=== PATIENT | male | born 1950 | race Caucasian/White ===

== ENCOUNTER 2020-08-30 15:39 | Emergency (ER) | payer SELFPAY ==
[~2020-08-30] VITALS: Ht 170.2 cm; Wt 75.5 kg
[2020-08-30 15:56] VITALS: BP 127/67
--- NOTE | 2020-08-30 16:39 | PHYS DOC ---
Past History Past Surgical History: No Surgical History (ALEX OSORIO APRN) Alcohol Use: None (ALEX OSORIO APRN) General Adult EDM: Chief Complaint: SORE THROAT HPI: HPI: Patient is a 70-year-old male who presents with EMS. Patient states "I have no idea why my called the ambulance I told her that I felt fine, all of had is a cough". "I do not have any pain, I have not been running any fevers, and I am ready to go home". (ALEX OSORIO APRN) Review of Systems: Review of Systems: Constitutional: Denies fever or chills Eyes: Denies change in visual acuity HENT: Denies nasal congestion or sore throat Respiratory: Reports cough, denies shortness of breath. Cardiovascular: Denies chest pain or edema GI: Denies abdominal pain, nausea, vomiting, bloody stools or diarrhea : Denies dysuria Musculoskeletal: Denies back pain or joint pain Integument: Denies rash Neurologic: Denies headache, focal weakness or sensory changes Endocrine: Denies polyuria or polydipsia Lymphatic: Denies swollen glands Psychiatric: Denies depression or anxiety (ALEX OSORIO APRN) Allergies: Allergies: Allergies Coded Allergies Type Severity Reaction Last Updated Verified No Known Drug Allergies 08/30/20 No (ALEX OSORIO APRN) Physical Exam: PE: Constitutional: Well developed, well nourished, no acute distress, non-toxic appearance. [] HENT: Normocephalic, atraumatic, bilateral external ears normal, oropharynx moist, no oral exudates, nose normal. [] Eyes: PERRLA, EOMI, conjunctiva normal, no discharge. [] Neck: Normal range of motion, no tenderness, supple, no stridor. [] Cardiovascular:Heart rate regular rhythm, no murmur [] Lungs & Thorax: Bilateral breath sounds clear to auscultation [] Abdomen: Bowel sounds normal, soft, no tenderness, no masses, no pulsatile masses. [] Skin: Warm, dry, no erythema, no rash. [] Back: No tenderness, no CVA tenderness. [] Extremities: No tenderness, no cyanosis, no clubbing, ROM intact, no edema. [] Neurologic: Alert and oriented X 3, normal motor function, normal sensory function, no focal deficits noted. [] Psychologic: Affect normal, judgement normal, mood normal. [] (ALEX OSORIO APRN) Current Patient Data: Vital Signs: Vital Signs Date Time Temp Pulse Resp B/P (MAP) Pulse Ox O2 Delivery O2 Flow Rate FiO2 08/30/20 15:56 98.4 82 16 127/67 (87) 96 Room Air (ALEX OSORIO APRN) EKG: EKG: [] (ALEX OSORIO APRN) Radiology/Procedures: Radiology/Procedures: [] (ALEX OSORIO APRN) Heart Score: C/O Chest Pain: No Risk Factors: Risk Factors: DM, Current or recent (<one month) smoker, HTN, HLP, family history of CAD, obesity. Risk Scores: Score 0 - 3: 2.5% MACE over next 6 weeks - Discharge Home Score 4 - 6: 20.3% MACE over next 6 weeks - Admit for Clinical Observation Score 7 - 10: 72.7% MACE over next 6 weeks - Early Invasive Strategies (ALEX OSORIO APRN) Course & Med Decision Making: Course & Med Decision Making Pertinent Labs and Imaging studies reviewed. (See chart for details) [] 70-year-old male who presents with EMS for cough. Patient states his called the ambulance because he had a cough and has been worried about Covid. Patient states that he has no complaints. Patient denies any pain. Afebrile. Patient is refusing any testing or imaging to be done. Patient is hemodynamically stable. Alert and oriented x3. Explained to patient that he needs to follow-up with his PCP. Patient states that he understands and is questing to be discharged. (ALEX OSORIO APRN) Course & Med Decision Making I oversaw on the above date of service of this patient. This patient was evaluated, examined, treated, and dispositioned from the emergency department by the mid-level practitioner. Although I was working at the time and available for consultation, no assistance was requested and I did not see or immediately direct the care of this patient. I reviewed note and agree to findings, plan of care, and disposition as stated. Electronically signed, Christos Clark DO (CHRISTOS CLARK DO) Candace Disclaimer: Candace Disclaimer: This electronic medical record was generated, in whole or in part, using a voice recognition dictation system. (ALEX OSORIO APRN) Departure Departure: Impression: Primary Impression: Cough Disposition: 01 HOME / SELF CARE / HOMELESS Condition: STABLE Referrals: PCP,UNKNOWN (PCP) Patient Instructions: Cough, Adult Additional Instructions: EMERGENCY DEPARTMENT GENERAL DISCHARGE INSTRUCTIONS Thank you for coming to [facility] (ED) today and trusting us with you care. We trust that you had a positivie experience in our Emergency Department. If you wish to speak to the department management, you may call the director at [phone]. YOUR FOLLOW UP INSTRUCTIONS ARE FOLLOWS: 1. Do you have a private Doctor? If you do not have a private doctor, please ask for a resource list of physicians or clinics that may be able to assist you with follow up care. 2. The Emergency Physician has interpreted your x-rays. The X-Ray specialist will also review them. If there is a change in the findings, you will be notified in 48 hours when at all possible. 3. A lab test or culture has been done, your results will be reviewed and you will be notified if you need a change in treatment. ADDITIONAL INSTRUCTIONS AND INFORMATION: 1. Your care today has been supervised by a physician who is specially trained in emergency care. Many problems require more than one evaluation for a complete diagnosis and treatment. We recommend that you schedule your follow up appointment as recommended to ensure complete treatment of you illness or injury. If you are unable to obtain follow up care and continue to have a problem, or if your condition worsens, we recommend that you return to the ED. 2. We are not able to safely determine your condition over the phone nor are we able to give sound medical advice over the phone. For these safety reasons, if you call for medical advice we will ask you to come to the ED for further evaluation. 3. If you have any questions regarding these discharge instructions please call the ED at [phone]. SAFETY INFORMATION: In the interest of safety, wellness, and injury prevention; we encourage you to wear your sealbelt, if you smoke; quite smoking, and we encourage family to use a protective helmet for bicycling and other sporting events that present an increased risk for head injury. IF YOUR SYMPTOMS WORSEN OR NEW SYMPTOMS DEVELOP, OR YOU HAVE CONCERNS ABOUT YOUR CONDITION; OR IF YOUR CONDITION WORSENS WHILE YOU ARE WAITING FOR YOUR FOLLOW UP APPOINTMENT; EITHER CONTACT YOUR PRIMARY CARE DOCTOR, THE PHYSICIAN WHOSE NAME AND NUMBER YOU WERE GIVEN, OR RETURN TO THE ED IMMEDIATELY. ALEX OSORIO APRN Aug 30, 2020 16:39 CHRISTOS CLARK DO Sep 03, 2020 09:01
[2020-08-31] MEDS ORDERED: AZIT250T6 PO (21:04)
== END 2020-08-30 16:51 | disposition home or self-care (01) ==
LOC: ER 15:39
DX: R05 Cough (principal)
CPT/HCPCS: 99283-25

== ENCOUNTER 2020-08-31 17:47 | Emergency (ER) | payer SELFPAY ==
[~2020-08-31] VITALS: Ht 181.6 cm; Wt 75.2 kg
--- NOTE | 2020-08-31 18:02 | PHYS DOC ---
Past History Past Surgical History: No Surgical History (MICHA SNYDRE MD) Alcohol Use: None (MICHA SNYDER MD) General Adult HPI: HPI: Patient is a 70 year old male who presents with above hx and complaints (MICHA SNYDER MD) HPI: 70-year-old male who presents to the emergency department with a chief complaint of my is making me come here. Patient states his thinks that he has not been eating, has been short of breath, and might have the coronavirus so she made him come to the emergency department for an evaluation. Patient states he does feel a little short of breath intermittently, however denies the other physical complaints that his has made. Patient denies chest pains, chest congestion or nasal congestion, abdominal pain, nausea, vomiting, diarrhea, increased thirst or increased urination. Patient states he does not smoke cigarettes, drinks occasionally, denies illicit drug use. Patient states he does not have a primary doctor, does not take any prescription medications or gfru-llb-hixtzhz medications, denies allergies to medications. Patient denies any recent travel, states no one else in his home has been ill. (THAD LA APRN) Review of Systems: Review of Systems: Constitutional: Denies fever or chills Eyes: Denies change in visual acuity HENT: Denies nasal congestion or sore throat Respiratory: Denies cough or shortness of breath Cardiovascular: Denies chest pain or edema GI: Denies abdominal pain, nausea, vomiting, bloody stools or diarrhea : Denies dysuria Musculoskeletal: Denies back pain or joint pain Integument: Denies rash Neurologic: Denies headache, focal weakness or sensory changes Endocrine: Denies polyuria or polydipsia Lymphatic: Denies swollen glands Psychiatric: Denies depression or anxiety (MICHA SNYDER MD) Review of Systems: 14 body systems of review of systems have been reviewed. See HPI for pertinent positives and negative responses, otherwise all other systems are negative, nonpertinent or noncontributory. (THAD LA APRN) Current Medications: Current Meds: Patient denies taking prescription medications or eigb-uak-[id number] medications. (THAD LA APRN) Allergies: Allergies: Allergies Coded Allergies Type Severity Reaction Last Updated Verified No Known Drug Allergies 08/30/20 No (MICHA SNYDER MD) Allergies: Patient denies allergies to medications. (THAD LA APRN) Physical Exam: PE: Constitutional: Well developed, well nourished, no acute distress, non-toxic appearance. [] HENT: Normocephalic, atraumatic, bilateral external ears normal, oropharynx moist, no oral exudates, nose normal. [] Eyes: PERRLA, EOMI, conjunctiva normal, no discharge. [] Neck: Normal range of motion, no tenderness, supple, no stridor. [] Cardiovascular:Heart rate regular rhythm, no murmur [] Lungs & Thorax: Bilateral breath sounds clear to auscultation [] Abdomen: Bowel sounds normal, soft, no tenderness, no masses, no pulsatile masses. [] Skin: Warm, dry, no erythema, no rash. [] Back: No tenderness, no CVA tenderness. [] Extremities: No tenderness, no cyanosis, no clubbing, ROM intact, no edema. [] Neurologic: Alert and oriented X 3, normal motor function, normal sensory function, no focal deficits noted. [] Psychologic: Affect normal, judgement normal, mood normal. [] (MICHA SNYDER MD) PE: Constitutional: Well developed, well nourished, no acute distress, non-toxic appearance. 70-year-old male in no apparent distress. HENT: Normocephalic, atraumatic. Eyes: Conjunctiva normal, no discharge. Neck: Normal range of motion, no stridor. Cardiovascular:Heart rate regular rhythm, no murmur, heart sounds S1-S2 to auscultation. Lungs & Thorax: Bilateral breath sounds clear to auscultation no adventitious lung sounds appreciated. Abdomen: Bowel sounds normal, soft, no tenderness, no masses, no pulsatile masses. No discoloration or areas of ecchymosis of the abdomen. Skin: Warm, dry, no erythema, no rash. Back: No tenderness, no CVA tenderness. Extremities: No tenderness, no cyanosis, no clubbing, ROM intact, no edema. Neurologic: Alert and oriented X 3, normal motor function, normal sensory function, no focal deficits noted. Psychologic: Affect normal, judgement normal, mood normal. (THAD LA APRN) Current Patient Data: Vital Signs: Laboratory Tests Test 08/31/20 18:25 White Blood Count 3.2 x10^3/uL Red Blood Count 4.45 x10^6/uL Hemoglobin 16.0 g/dL Hematocrit 46.2 % Mean Corpuscular Volume 104 fL Mean Corpuscular Hemoglobin 36 pg Mean Corpuscular Hemoglobin Concent 35 g/dL Red Cell Distribution Width 14.3 % Platelet Count 167 x10^3/uL Neutrophils (%) (Auto) 38 % Lymphocytes (%) (Auto) 42 % Monocytes (%) (Auto) 19 % Eosinophils (%) (Auto) 1 % Basophils (%) (Auto) 0 % Neutrophils # (Auto) 1.2 x10^3uL Lymphocytes # (Auto) 1.3 x10^3/uL Monocytes # (Auto) 0.6 x10^3/uL Eosinophils # (Auto) 0.0 x10^3/uL Basophils # (Auto) 0.0 x10^3/uL (THAD LA APRN) EKG: EKG: [] (MICHA SNYDER MD) EKG: EKG performed at 1831 by house respiratory therapy staff shows a normal sinus rhythm with a leftward axis, otherwise no other ectopy appreciated, heart rate 70 bpm, WV interval 0.138, QTc interval 0.439, no acute STEMI, no ACS, no acute ischemia appreciated, EKG interpreted by ED attending physician Dr. Snyder. (THAD LA APRN) Radiology/Procedures: Radiology/Procedures: [] (MICHA SNYDER MD) Radiology/Procedures: PATIENT: IRLANDA FARMER ACCOUNT: [id number] : 1950 LOCATION: ER AGE: 70 SEX: M EXAM STATUS: REG ER ORD. PHYSICIAN: THAD LA APRN REASON: short of breath, elevated d-dimer - 100mls omni 350 PROCEDURE: CT ANGIOGRAPHY CHEST CT arteriogram of the chest. HISTORY: Short of breath, elevated d-dimer CT arteriogram of the chest was done using 100 mL Omnipaque 350 contrast. Coronal MIP images were reconstructed. Thyroid is homogeneous. Thoracic aorta is tortuous. There is no aortic dissection. Upper poles the kidneys are unremarkable. Adrenal glands are normal. There are gallstones in the gallbladder. There are small cysts in the liver. This study is negative for pulmonary embolus. There is atelectasis in the lung bases. There is a gr oundglass nodule or a small groundglass infiltrate on image #[address] series 4 in the left lung measuring 1.2 cm. There is also small focal infiltrate in the lateral left lower lobe on images 64 through 72. Small foci of pneumonia are possible. Follow-up study in 3-6 months would be recommended to exclude an underlying nodule. There is a small hiatus hernia. IMPRESSION: 1. Posterior dependent atelectasis. 2. Small foci of groundglass infiltrate or groundglass nodules in the left upper lobe and left lower lobe, focal pneumonitis or pneumonia is possible. Follow-up study recommended. 3. Negative for pulmonary embolus. 4. Cholelithiasis. PQRS Compliance Statement: One or more of the following individualized dose reduction techniques were utilized for this examination: 1. Automated exposure control 2. Adjustment of the mA and/or kV according to patient size 3. Use of iterative reconstruction technique Electronically signed by: Judah Smart MD (08/31/2020 8:33 PM) [facility] DICTATED AND SIGNED BY: JUDAH SMART MD DATE: 08/31/202025 CC: THAD LA APRN; MICHA SNYDER MD; PCP,NO ~MTH0 0 (THAD LA APRN) Heart Score: Risk Factors: Risk Factors: DM, Current or recent (<one month) smoker, HTN, HLP, family history of CAD, obesity. Risk Scores: Score 0 - 3: 2.5% MACE over next 6 weeks - Discharge Home Score 4 - 6: 20.3% MACE over next 6 weeks - Admit for Clinical Observation Score 7 - 10: 72.7% MACE over next 6 weeks - Early Invasive Strategies (MICHA SNYDER MD) C/O Chest Pain: No (THAD LA APRN) Course & Med Decision Making: Course & Med Decision Making Pertinent Labs and Imaging studies reviewed. (See chart for details) [] (MICHA SNYDER MD) Course & Med Decision Making 70-year-old male, vital signs reviewed, presents emergency department with chief complaint that his made him come as she is afraid he might have the COVID- 19 virus. Patient did reveal that he has some shortness of breath, however did deny chest pain. Patient's vital signs were nonconcerning all within normal limits, cough once during HPI interview with the sound of bronchial type infection. Related to patient's 's concerns, stating that he does not reveal all of his illnesses and complaints, will perform cardiorespiratory work- up. Patient is EKG was nonconcerning, troponin negative, lab work unremarkable except for elevated D-dimer, will order CT angio chest to rule out pulmonary emboli however patient does have elevated monocytes and low white blood cell count, this is suspicious for viral infectious process, COVID-19 virus testing was obtained and sent to lab for routine analysis. Awaiting CT angio chest results at this time. Patient does remain nontoxic in appearance, he is in no obvious respiratory distress, and vital signs have remained normal throughout his ER stay. CT angio chest negative for pulmonary emboli however does show groundglass opacities of the left upper and lower lobes of the lung. Suggestive of pneumonia or pneumonitis. The patient is a PUI. Will treat as outpatient related to patient in no respiratory distress, remains nontoxic in appearance, is in no obvious distress, the patient's curb 65 score is 1 which supports rec ommendation of treating as outpatient. Will start patient on azithromycin p.o. regimen. We will discussed with patient strict follow-up with PCP this week. Discussed CT findings with patient, patient gave verbal understanding of discharge home instructions, PUI instructions, antibiotic directions, strict follow-up with PCP this week, strict return to ER precautions and concerns, patient states that he feels fine and is ready to go home, patient was discharged home without incident. Covid 19 PPE donned and worn during all interactions with patient. (THAD LA APRN) Dragon Disclaimer: Dragon Disclaimer: This electronic medical record was generated, in whole or in part, using a voice recognition dictation system. (MICHA SNYDER MD) Departure Departure: Impression: Primary Impression: Atypical pneumonia Additional Impressions: Person under investigation for COVID-19 CAP (community acquired pneumonia) Qualified Codes: J18.9 - Pneumonia, unspecified organism Disposition: HOME / SELF CARE / HOMELESS Condition: GOOD Referrals: PCP,NO (PCP) Patient Instructions: Pneumomediastinum Additional Instructions: You were seen today in the emergency department for complaints of shortness of breath. A full cardiorespiratory work-up was performed in the ED today. Your EKG and cardiac enzyme serum blood work did not show any concerning findings, your chest x-ray within normal limits, as we discussed you did have an elevated D-dimer which can sometimes indicate your body is suffering from a blood clot so a CT of your chest was ordered to rule out any blood clots of your lungs. As we discussed, the CT did not show any blood clots in your lungs, however did show signs of pneumonia of the upper and lower lung. A COVID-19 virus test was drawn today and should be available within the next 48 hours. I have attached COVID-19 virus information to this document, please review. Even though an extensive cardiorespiratory work-up was performed in the ED today this does not fully rule out any underlying cardiac or respiratory abnormalities. Therefore, as we discussed, please follow-up with a primary care physician for further evaluation and consideration of specialist follow-up. You had indicated you do not have a primary care physician however you may consider using the [facility] [place] at [address] [place] [address] [place] [address]. Their telephone number is [phone]. Please call Wednesday for an appointment this week. I am starting you on a antibiotic called azithromycin. I have sent your prescription to the pharmacy of your choice. Please start tomorrow and take as directed. Please return to the emergency department immediately for worsening symptoms, increased short of breath, chest pains, dizziness or passing out spells, or other concerns. It was a pleasure taking care of you in the ED today and I thank you for allowing me to participate in your emergency care. You have been tested for or diagnosed with COVID-19. It is an infection caused by a new type of coronavirus. COVID-19 will cause cold-like or mild flu symptoms in most. It can cause more severe symptoms like problems breathing in some. There is no treatment for COVID-19. The body will clear the infection over time. Self-care will help to ease discomfort. Steps to Take: Self-Care Rest as needed. Healthy habits may help you feel better. Steps include: Choose healthy foods including fruits and vegetables. Drink water throughout the day. Get plenty of sleep each night. If you smoke, try to quit. It may ease breathing. Avoid alcohol. Keep Others Healthy The virus can spread to others. Droplets are released every time you sneeze or cough. The droplets can get into the mouth, nose, or eyes of people near you and lead to infection. To lower the chances of spreading COVID-19 to others: Stay at home until your doctor has said it is safe to leave. If you tested positive this will mean staying isolated until both of the following are true: At least 7 days have passed since the start of illness. You are free of fever for at least 72 hours without the use of medicine. During this time: - Avoid public areas, events, or transportation. Do not return to work or school until your doctor has said it is safe to do so. - Call ahead if you need to go to a medical center. Let them know you may have COVID-19. It will help them guide you where to go. They may also ask you to wear a facemask when you come to the office. - If you call for emergency medical services, let them know you may have COVID- 19. While at home: - Try to avoid close contact with others. Stay about 6 feet away. - If possible, spend most of your time in a separate room from others. - Use a face mask if you will be in close contact with others such as sharing a room or vehicle. - Have someone wipe down common surfaces in the home. Use household mine superintendent every day on areas like doorknobs, counters, or sinks. - Cough or sneeze into a tissue. Throw the tissue away right after use. If a tissue is not available, cough or sneeze into your elbow. - Wash your hands often. Wash them after sneezing or coughing. Use soap and water and wash for at least 20 seconds. Alcohol based hand press cleaner can be used if soap and water is not available. - Do not prepare food for others. Avoid sharing personal items like forks, spoons, or toothbrushes. - Avoid close contact with pets while you are sick. There is no evidence of the virus passing to pets. This is a safety step until more is known about this virus. Isolation can be frustrating. Social interaction can help. Keep in touch with friends and family through phone and tech options. You can still interact with others in your home, just keep a safe distance of about 6 feet. Follow-up: Your doctors office will check in with you to see if there are any changes in your health. You may be asked to keep track of symptoms to share with them. They will also let you know when you are clear to be in public again. Problems to Look Out For: Contact your doctor if your recovery is not going as you expect. Get emergency care if you have problems such as: - Trouble breathing - Nonstop chest pain or pressure - Changes in awareness, confusion, or problems waking - Lips or face have bluish color - Worsening of symptoms If you think you have an emergency, call for emergency medical services right away. As taken from [facility] EMERGENCY DEPARTMENT GENERAL DISCHARGE INSTRUCTIONS Thank you for coming to [facility] (ED) today and trusting us with you care. We trust that you had a positivie experience in our Emergency Department. If you wish to speak to the department management, you may call the director at [phone]. YOUR FOLLOW UP INSTRUCTIONS ARE FOLLOWS: 1. Do you have a private Doctor? If you do not have a private doctor, please ask for a resource list of physicians or clinics that may be able to assist you with follow up care. 2. The Emergency Physician has interpreted your x-rays. The X-Ray specialist will also review them. If there is a change in the findings, you will be notified in 48 hours when at all possible. 3. A lab test or culture has been done, your results will be reviewed and you will be notified if you need a change in treatment. ADDITIONAL INSTRUCTIONS AND INFORMATION: 1. Your care today has been supervised by a physician who is specially trained in emergency care. Many problems require more than one evaluation for a complete diagnosis and treatment. We recommend that you schedule your follow up appointment as recommended to ensure complete treatment of you illness or injury. If you are unable to obtain follow up care and continue to have a problem, or if your condition worsens, we recommend that you return to the ED. 2. We are not able to safely determine your condition over the phone nor are we able to give sound medical advice over the phone. For these safety reasons, if you call for medical advice we will ask you to come to the ED for further evaluation. 3. If you have any questions regarding these discharge instructions please call the ED at [phone]. SAFETY INFORMATION: In the interest of safety, wellness, and injury prevention; we encourage you to wear your sealbelt, if you smoke; quite smoking, and we encourage family to use a protective helmet for bicycling and other sporting events that present an increased risk for head injury. IF YOUR SYMPTOMS WORSEN OR NEW SYMPTOMS DEVELOP, OR YOU HAVE CONCERNS ABOUT YOUR CONDITION; OR IF YOUR CONDITION WORSENS WHILE YOU ARE WAITING FOR YOUR FOLLOW UP APPOINTMENT; EITHER CONTACT YOUR PRIMARY CARE DOCTOR, THE PHYSICIAN WHOSE NAME AND NUMBER YOU WERE GIVEN, OR RETURN TO THE ED IMMEDIATELY. Scripts Azithromycin (AZITHROMYCIN TABLET) 250 Mg Tablet 1 PKG PO UD for atypical pneumonia for 5 Days, #6 TAB 0 Refills 2 the first day followed by 1 for days 2-5 Prov: THAD LA APRN 08/31/20 Attending Signature Attending Signature I have participated in the care of this patient and I have reviewed and agree with all pertinent clinical information above including history, exam, and recommendations. (MICHA SNYDER MD) MICHA SNYDER MD Aug 31, 2020 18:02 THAD LA APRN Aug 31, 2020 18:57
[2020-08-31 18:50] LABS: BASO % 0 % (0-3); EOS % 1 % (0-3); HEMATOCRIT 46.2 % (39.0-53.0); LYMPH # 1.3 x10^3/uL (1.0-4.8); LYMPH % 42 % (24-48); MEAN CORPUSCULAR HEMOGLOBIN 36 pg (25-35); MEAN CORPUSCULAR HGB CONC 35 g/dL (31-37); MEAN CORPUSCULAR VOLUME 104 fL (79-100); MONO # 0.6 x10^3/uL (0.0-1.1); MONO % 19 % (0-9); NEUT # 1.2 x10^3uL (1.8-7.7); NEUT % 38 % (31-73); PLATELET COUNT 167 x10^3/uL (140-400); RED BLOOD COUNT 4.45 x10^6/uL (4.30-5.70); RED CELL DISTRIBUTION WIDTH 14.3 % (11.5-14.5); WHITE BLOOD COUNT 3.2 x10^3/uL (4.0-11.0)
[2020-08-31 18:54] LABS: CALCIUM 8.6 mg/dL (8.5-10.1); CREATININE 1.1 mg/dL (0.7-1.3); GFR 66.6; POTASSIUM 3.6 mmol/L (3.5-5.1)
[2020-08-31 19:00] LABS: ALBUMIN 3.7 g/dL (3.4-5.0); ALBUMIN/GLOBULIN RATIO 1.1 (1.0-1.7); TOTAL BILIRUBIN 0.4 mg/dL (0.2-1.0); TOTAL PROTEIN 7.1 g/dL (6.4-8.2)
[2020-08-31] MEDS: IOHEXOL 350 MG/ML 100 ML VIAL. IV ONE (19:42)
[2020-08-31] MEDS ORDERED: CONTRAST GIVEN. MC PRN (20:00)
--- NOTE | 2020-08-31 20:36 | RAD ---
CT arteriogram of the chest. HISTORY: Short of breath, elevated d-dimer CT arteriogram of the chest was done using 100 mL Omnipaque 350 contrast. Coronal MIP images were rec onstructed. Thyroid is homogeneous. Thoracic aorta is tortuous. There is no aortic dissection. Upper poles the kidneys are unremarkable. Adrenal glands are normal. There are gallstones in the gallbladde r. There are small cysts in the liver. This study is negative for pulmonary embolus. There is atelect asis in the lung bases. There is a groundglass nodule or a small groundglass infiltrate on image #[address] series 4 in the left lung measuring 1.2 cm. There is also small focal infiltrate in the lateral left lower lobe on images 64 through 72. Small foci of pneumonia are possible. Follow-up study in 3- 6 months would be recommended to exclude an underlying nodule. There is a small hiatus hernia. IMPRESSION: 1. Posterior dependent atelectasis. 2. Small foci of groundglass infiltrate or groundglass nodules in the left upper lobe and left lower lobe, focal pneumonitis or pneumonia is possible. Follow-up study recommended. 3. Negative for pulmonary embolus. 4. Cholelithiasis. PQRS Compliance Statement: One or more of the following individualized dose reduction techniques were utilized for this examinat ion: 1. Automated exposure control 2. Adjustment of the mA and/or kV according to patient size 3. Use of iterative reconstruction technique Electronically signed by: Judah Smart MD (08/31/2020 8:33 PM) [facility]
[2020-08-31 21:01] VITALS: BP 115/79
[2020-08-31] MEDS ORDERED: AZIT250T6 PO (21:04)
[2020-08-31] MEDS: AZITHROMYCIN 250 MG TABLET. PO ONE (21:11)
--- NOTE | 2020-08-31 21:38 | RAD ---
EXAMINATION: XR CHEST 2V CLINICAL HISTORY: Shortness of breath EXAM DATE/TIME: 08/31/2020 6:14 PM COMPARISON: None FINDINGS: Lines, Tubes, and Devices: None. Cardiomediastinal Silhouette: Normal heart size. Aortic atherosclerotic calcification. Lungs and Pleura: Subtle patchy opacities in the right lower lung zone and left upper lung zone. Old calcified granulomatous disease. No pleural effusion. Pulmonary vasculature unremarkable. Bones and Soft Tissues: Degenerative changes of the thoracic spine. IMPRESSION: Several patchy opacities in the right lower lung zone and left upper lung zone, nonspecific. Electronically signed by: Hardeep Chamorro DO (08/31/2020 9:35 PM) [facility]
--- NOTE | 2020-09-01 10:21 | EKG ---
[address] [address] Test Date: 2020-08-31 Test Time: 18:31:58 Pat Name: IRLANDA FARMER Department: Room: Gender: M Transmission Worker: : 1950 Requested By: THAD LA Order Number: [id number] Reading MD: Measurements Intervals [place] Rate: P: SD: QRS: QRSD: T: QT: QTc: Interpretive Statements
== END 2020-08-31 21:16 | disposition home or self-care (01) ==
LOC: ER 17:47
DX: J18.9 Pneumonia, unspecified organism (principal); U07.1 COVID-19
CPT/HCPCS: 36415; 71046; 71275; 80053; 83605; 84484; 85025; 85379; 93005; 99285; C9803; Q9967; U0003

== ENCOUNTER 2020-09-09 16:23 | Emergency (ER) | payer SELFPAY ==
[~2020-09-09] VITALS: Ht 182.9 cm; Wt 79.5 kg
[~2020-09-09 16:23] MED LIST: AZIT250T6 PO
--- NOTE | 2020-09-09 16:43 | PHYS DOC ---
Past History Past Surgical History: No Surgical History Additional Past Surgical Histo: hernia Alcohol Use: Occasionally General Adult EDM: Chief Complaint: WEAKNESS/GENERALIZED HPI: HPI: Patient is a 70-year-old male who presents to the ER today for generalized weakness, lethargy, bilateral rib pain with deep inspiration that started 4 days ago. Patient is Covid positive. Patient states symptoms started 9 days ago. Patient rates his rib pain 4 out of 10, it is worse with deep inspiration, no radiation, no treatment prior to arrival. Patient denies shortness of breath, fevers, chest pain, loss of taste or smell, cough, sore throat. Patient does not have any medical history. Vital signs stable Review of Systems: Review of Systems: 14 body systems of the review of systems have been reviewed. See HPI for pertinent positive and negative responses, otherwise all other systems are negative, nonpertinent or noncontributory Allergies: Allergies: Allergies Coded Allergies Type Severity Reaction Last Updated Verified No Known Drug Allergies 09/09/20 No Physical Exam: PE: Constitutional: Well developed, well nourished, no acute distress, non-toxic appearance. [] HENT: Normocephalic, atraumatic Eyes: PERRL, conjunctiva normal, no discharge. [] Neck: Normal range of motion, no stridor Cardiovascular:Heart rate regular rhythm, no murmur [] Lungs & Thorax: Bilateral breath sounds clear to auscultation [] Abdomen: Bowel sounds normal, soft, no tenderness, no masses, no pulsatile masses. [] Skin: Warm, dry, no erythema, no rash. [] Back: No tenderness, normal range of motion Extremities: No tenderness, no cyanosis, no clubbing, ROM intact, no edema. [] Neurologic: Alert and oriented X 3, normal motor function, normal sensory function, no focal deficits noted. [] Psychologic: Affect normal, judgement normal, mood normal. [] Current Patient Data: Labs: Laboratory Tests Test 09/09/20 17:03 White Blood Count 9.1 x10^3/uL Red Blood Count 3.92 x10^6/uL Hemoglobin 13.7 g/dL Hematocrit 40.4 % Mean Corpuscular Volume 103 fL Mean Corpuscular Hemoglobin 35 pg Mean Corpuscular Hemoglobin Concent 34 g/dL Red Cell Distribution Width 14.3 % Platelet Count 202 x10^3/uL Neutrophils (%) (Auto) 72 % Lymphocytes (%) (Auto) 14 % Monocytes (%) (Auto) 13 % Eosinophils (%) (Auto) 1 % Basophils (%) (Auto) 1 % Neutrophils # (Auto) 6.5 x10^3uL Lymphocytes # (Auto) 1.3 x10^3/uL Monocytes # (Auto) 1.1 x10^3/uL Eosinophils # (Auto) 0.1 x10^3/uL Basophils # (Auto) 0.0 x10^3/uL Sodium Level 143 mmol/L Potassium Level 3.7 mmol/L Chloride Level 104 mmol/L Carbon Dioxide Level 30 mmol/L Anion Gap 9 Blood Urea Nitrogen 10 mg/dL Creatinine 1.0 mg/dL Estimated GFR (Cockcroft-Gault) 74.3 BUN/Creatinine Ratio 10 Glucose Level 93 mg/dL Calcium Level 8.5 mg/dL Total Bilirubin 0.6 mg/dL Aspartate Amino Transf (AST/SGOT) 16 U/L Alanine Aminotransferase (ALT/SGPT) 15 U/L Alkaline Phosphatase 71 U/L Troponin I Quantitative < 0.017 ng/mL Total Protein 6.2 g/dL Albumin 3.1 g/dL Albumin/Globulin Ratio 1.0 Vital Signs: Vital Signs Date Time Temp Pulse Resp B/P (MAP) Pulse Ox O2 Delivery O2 Flow Rate FiO2 09/09/20 16:36 98.7 68 18 118/70 93 EKG: EKG: EKG was performed by ER staff at 1648 shows sinus rhythm read by Dr. Null [] Radiology/Procedures: Radiology/Procedures: PROCEDURE: PORTABLE CHEST 1V Single AP view of the chest. Comparison: 08/31/2020. Indication: Bilateral rib pain with Covid Findings: The aorta is calcified and tortuous. The heart is not enlarged. There is no pneumothorax or effusion. No air space or interstitial disease. Impression: 1. No acute cardiopulmonary process. Electronically signed by: Jamin Pruitt MD (09/09/2020 5:34 PM) [facility] DICTATED AND SIGNED BY: JAMIN PRUITT MD DATE: 09/09/20 1733 CC: EMERGENCY,DEPARTMENT; JORJE IRAHETA [employer] SUR[employer]Y WORKER; PCP,NO ~MTH0 0 Heart Score: C/O Chest Pain: No Risk Factors: Risk Factors: DM, Current or recent (<one month) smoker, HTN, HLP, family history of CAD, obesity. Risk Scores: Score 0 - 3: 2.5% MACE over next 6 weeks - Discharge Home Score 4 - 6: 20.3% MACE over next 6 weeks - Admit for Clinical Observation Score 7 - 10: 72.7% MACE over next 6 weeks - Early Invasive Strategies Course & Med Decision Making: Course & Med Decision Making Pertinent Labs and Imaging studies reviewed. (See chart for details) 70-year-old male being seen in the ER today for generalized weakness, lethargy, bilateral rib pain with deep inspiration that started 4 days ago. Patient is Covid positive. Work-up in the ER consisted of blood work, chest x-ray, EKG. his work-up in the ER was unremarkable. Patient educated on the symptoms of COVID- 19. I discussed with patient all findings and diagnostic testing as well as the need to follow-up with PCP for further evaluation and treatment or return to the ER if any new or worsening symptoms. Strict return precautions were also discussed at length. Patient voiced understanding and agreement with the plan. Patient is hemodynamically stable at the time of disposition. Dragon Disclaimer: Drag[employer] Disclaimer: This electronic medical record was generated, in whole or in part, using a voice recognition dictation system. Departure Departure: Impression: Primary Impression: COVID-19 Disposition: 01 HOME / SELF CARE / HOMELESS Condition: GOOD Referrals: PCP,NO (PCP) Patient Instructions: Weakness Additional Instructions: You were seen for generalized weakness. Your physical exam was reassuring. Your chest x-ray and blood work was normal. It is likely that your symptoms are a side effect of your COVID-19 infection. Please continue to follow the CDC guidelines regarding your self-isolation when you are symptomatic with COVID-19. You stated that you were in bed rest at home, you should slowly start to increase your activity as tolerated. You should return to the ER if you develop worsening cough, increased pain, altered mental status, severe fatigue, fevers, shortness of breath, chest pain, or any other new or concerning symptoms. Alternate Tylenol and ibuprofen as needed for your body aches and pain. You should make sure to drink plenty of fluids and get plenty of rest. EMERGENCY DEPARTMENT GENERAL DISCHARGE INSTRUCTIONS Thank you for coming to [facility] (ED) today and trusting us with you care. We trust that you had a positivie experience in our Emergency Department. If you wish to speak to the department management, you may call the director at [phone]. YOUR FOLLOW UP INSTRUCTIONS ARE FOLLOWS: 1. Do you have a private Doctor? If you do not have a private doctor, please ask for a resource list of physicians or clinics that may be able to assist you with follow up care. 2. The Emergency Physician has interpreted your x-rays. The X-Ray specialist will also review them. If there is a change in the findings, you will be notified in 48 hours when at all possible. 3. A lab test or culture has been done, your results will be reviewed and you will be notified if you need a change in treatment. ADDITIONAL INSTRUCTIONS AND INFORMATION: 1. Your care today has been supervised by a physician who is specially trained in emergency care. Many problems require more than one evaluation for a complete diagnosis and treatment. We recommend that you schedule your follow up appointment as recommended to ensure complete treatment of you illness or injury. If you are unable to obtain follow up care and continue to have a problem, or if your condition worsens, we recommend that you return to the ED. 2. We are not able to safely determine your condition over the phone nor are we able to give sound medical advice over the phone. For these safety reasons, if you call for medical advice we will ask you to come to the ED for further evaluation. 3. If you have any questions regarding these discharge instructions please call the ED at [phone]. SAFETY INFORMATION: In the interest of safety, wellness, and injury prevention; we encourage you to wear your sealbelt, if you smoke; quite smoking, and we encourage family to use a protective helmet for bicycling and other sporting events that present an increased risk for head injury. IF YOUR SYMPTOMS WORSEN OR NEW SYMPTOMS DEVELOP, OR YOU HAVE CONCERNS ABOUT YOUR CONDITION; OR IF YOUR CONDITION WORSENS WHILE YOU ARE WAITING FOR YOUR FOLLOW UP APPOINTMENT; EITHER CONTACT YOUR PRIMARY CARE DOCTOR, THE PHYSICIAN WHOSE NAME AND NUMBER YOU WERE GIVEN, OR RETURN TO THE ED IMMEDIATELY. JORJE IRAHETA APRN Sep 09, 2020 16:43
--- NOTE | 2020-09-09 17:01 | EKG ---
[address] [address] Test Date: 2020-09-09 Test Time: 16:40:13 Pat Name: IRLANDA FARMER Department: Room: Gender: M Relief Charge Nurse: BEBO : 1950 Requested By: JORJE IRAHETA Order Number: [id number] Reading MD: Measurements Intervals Ashley Rate: 68 P: 24 AL: 132 QRS: 0 QRSD: 104 T: 17 QT: 386 QTc: 415 Interpretive Statements SINUS RHYTHM LEFTWARD AXIS OTHERWISE NORMAL ECG RI6.02 No previous ECG available for comparison
[2020-09-09 17:20] LABS: BASO % 1 % (0-3); EOS # 0.1 x10^3/uL (0.0-0.7); EOS % 1 % (0-3); HEMATOCRIT 40.4 % (39.0-53.0); HEMOGLOBIN 13.7 g/dL (13.0-17.5); LYMPH # 1.3 x10^3/uL (1.0-4.8); LYMPH % 14 % (24-48); MEAN CORPUSCULAR HEMOGLOBIN 35 pg (25-35); MEAN CORPUSCULAR HGB CONC 34 g/dL (31-37); MEAN CORPUSCULAR VOLUME 103 fL (79-100); MONO # 1.1 x10^3/uL (0.0-1.1); MONO % 13 % (0-9); NEUT # 6.5 x10^3uL (1.8-7.7); NEUT % 72 % (31-73); PLATELET COUNT 202 x10^3/uL (140-400); RED BLOOD COUNT 3.92 x10^6/uL (4.30-5.70); RED CELL DISTRIBUTION WIDTH 14.3 % (11.5-14.5); WHITE BLOOD COUNT 9.1 x10^3/uL (4.0-11.0)
[2020-09-09 17:27] LABS: CALCIUM 8.5 mg/dL (8.5-10.1); GFR 74.3; POTASSIUM 3.7 mmol/L (3.5-5.1)
[2020-09-09 17:30] VITALS: BP 107/74
[2020-09-09 17:30] LABS: ALBUMIN 3.1 g/dL (3.4-5.0); TOTAL BILIRUBIN 0.6 mg/dL (0.2-1.0); TOTAL PROTEIN 6.2 g/dL (6.4-8.2)
--- NOTE | 2020-09-09 17:36 | RAD ---
Single AP view of the chest. Comparison: 08/31/2020. Indication: Bilateral rib pain with Covid Findings: The aorta is calcified and tortuous. The heart is not enlarged. There is no pneumothorax or effusion . No air space or interstitial disease. Impression: 1. No acute cardiopulmonary process. Electronically signed by: Mehul Barajas MD (09/09/2020 5:34 PM) [facility]
== END 2020-09-09 17:58 | disposition home or self-care (01) ==
LOC: ER 16:23
DX: U07.1 COVID-19 (principal)
CPT/HCPCS: 36415; 71045; 80053; 84484; 85025; 93005; 99285